=== PATIENT | female | born 1985 | race Caucasian/White ===

== ENCOUNTER 2024-03-02 20:20 | Emergency (ER) | payer MEDICAID ==
[~2024-03-02] VITALS: Ht 175.3 cm; Wt 81.6 kg
[2024-03-02 20:32] VITALS: BP_SYST 134; PULSE 88; RESP 18; TEMP 97.9; O2SAT 98
[2024-03-02] MEDS: NACL 0.9% 1,000 ML IV ONE (23:05)
[2024-03-02] MEDS: KETOROLAC TROMETHAMINE 30 MG VIAL IVP ONE (23:22)
[2024-03-03] MEDS: metroNIDAZOLE 500 mg/NS 100 ML IV ONE (01:30)
[2024-03-03] MEDS ORDERED: METR-154 PO (03:57)
[2024-03-03 04:05] VITALS: BP_SYST 124; PULSE 72; RESP 20; TEMP 97; O2SAT 98
[2024-03-03 07:44] LABS: CALCIUM 9.1 mg/dL (8.4-11.0); POTASSIUM 3.6 mmol/L (3.5-5.1)
[2024-03-03 07:45] LABS: ALBUMIN 3.7 g/dL (3.4-4.8); BILIRUBIN,DIRECT 0.2 mg/dL (0.0-0.3); CREATININE 0.56 mg/dL (0.55-1.30); TOTAL BILIRUBIN 0.7 mg/dL (0.0-1.0); TOTAL PROTEIN, SERUM 8.7 g/dL (6.4-8.3)
[2024-03-03 08:02] LABS: BILIRUBIN,URINE NEGATIVE (NEGATIVE); BLOOD, URINE 3+ (NEGATIVE); CLARITY/URINE HAZY (CLEAR); COLOR,URINE YELLOW (YELLOW); GLUCOSE,URINE NEGATIVE (NEGATIVE); KETONES,URINE NEGATIVE (NEGATIVE); LEUKOCYTE ESTERASE ,URINE TRACE (NEGATIVE); NITRITE, URINE NEGATIVE (NEGATIVE); PH,URINE 5.5 (5.0-8.0); PROTEIN URINE TRACE (NEGATIVE); UROBILINOGEN,URINE 0.2 (0.2-1.0)
[2024-03-03 08:03] LABS: BACTERIA,URINE FEW /HPF (None Seen); RBC,URINE 20-50 /HPF (0-3)
[2024-03-03 08:05] LABS: MUCUS,URINE None Seen /LPF (None Seen)
[2024-03-03 09:03] LABS: BASOPHILS # (AUTO) 0.1 K/uL (0.0-0.2); BASOPHILS % (AUTO) 0.9 % (0.0-2.0); EOSINOPHILS # (AUTO) 0.3 K/uL (0.0-0.4); EOSINOPHILS % (AUTO) 2.8 % (0.0-4.0); HEMATOCRIT 31.1 % (36-48); HEMOGLOBIN 10.2 g/dL (12.0-16.0); LYMPHOCYTES # (AUTO) 2.4 K/uL (1.0-5.5); LYMPHOCYTES % (AUTO) 19.4 % (20.5-51.5); MEAN CORPUSCULAR HEMOGLOBIN 24 pg (27-31); MEAN CORPUSCULAR HGB CONC 33 % (32-36); MEAN CORPUSCULAR VOLUME 73 fL (79.0-98.0); MONOCYTES # (AUTO) 0.7 K/uL (0.0-1.0); MONOCYTES % (AUTO) 5.8 % (1.7-9.3); NEUTROPHILS # (AUTO) 8.9 K/uL (1.8-7.7); NEUTROPHILS % (AUTO) 71.1 % (40.0-70.0); PLATELET COUNT (AUTO) 479 K/uL (130-430); RED BLOOD CELL COUNT(AUTO) 4.27 MIL/uL (4.2-6.2); RED CELL DISTRIBUTION WIDTH 20.4 % (9.0-15.0); WHITE BLOOD COUNT (AUTO) 12.5 K/uL (4.8-10.8)
== END 2024-03-03 04:05 | disposition home or self-care (01) ==
LOC: SED 20:20
DX: A09 Infectious gastroenteritis and colitis, unspecified (principal); R10.84 Generalized abdominal pain; R14.0 Abdominal distension (gaseous); Z90.49 Acquired absence of other specified parts of digestive tract; Z88.0 Allergy status to penicillin; Z79.899 Other long term (current) drug therapy
CPT/HCPCS: 99285; 74176; 96361; 96375; 80076; 80048; 81001; 85025; 87040; 87086; 87186; 36415; 81025; 96365; J1885; J7030; J3490; 81000; 81015